=== PATIENT | female | born 1955 | race Caucasian/White ===

== ENCOUNTER 2018-04-01 09:23 | Day surgery (SDC) | payer BC ==
[~2018-04-01 09:23] MED LIST: Buffered Lidocaine 0.9% SYRIN* 5 ML/SYR SYRINGE INTRADERM ONE; Gentamicin ADULT (*) 200 MG in NS 0.9% 100 ML* 100 ML IVPB ONE
[2018-04-01] MEDS ORDERED: Buffered Lidocaine 0.9% SYRIN* 5 ML/SYR SYRINGE ONE (09:50)
[2018-04-01] MEDS ORDERED: Clindamycin 900 MG/D5W BAG(*) 900 MG/50 ML BAG IVPB ONE (09:50)
[2018-04-01] MEDS ORDERED: Gentamicin ADULT (*) 200 MG in NS 0.9% 100 ML* 100 ML IVPB ONE (10:00)
[2018-04-01 10:22] LABS: ABS Basophils 0 10^3/ul (0-0.2); ABS Eosinophils 0.2 10^3/ul (0-0.6); ABS Lymphocytes 2.1 10^3/ul (1.0-4.8); ABS Monocytes 0.6 10^3/ul (0-0.8); ABS Neutrophils 5.5 10^3/ul (1.5-7.7); ABS Nucleated RBC 0 10^3/ul; Eosinophil % 2.3 % (0-6); Hematocrit 42 % (35-47); Hemoglobin 14.4 g/dl (12.0-16.0); Lymphocyte % 24.6 % (25-47); Mean Corpuscular HGB Conc 34 g/dl (31-36); Mean Corpuscular Hemoglobin 30 pg (27-31); Mean Corpuscular Volume 88 fL (80-97); Nucleated Red Blood Cells % 0.1; Platelet Count 233 10^3/ul (150-450); Red Blood Count 4.81 10^6/ul (4.00-5.40); Red Cell Distribution Width 14 % (10.5-15); White Blood Count 8.5 10^3/ul (3.5-10.8)
[2018-04-01 10:32] LABS: INR 1.02 (0.77-1.02)
[2018-04-01] MEDS ORDERED: Lidocaine 1%* 5 ML VIAL ONE (10:44)
[2018-04-01] MEDS ORDERED: Midazolam* 1 MG/ML 5 ML VIAL (5 MG) ONE (11:21)
[2018-04-01] MEDS ORDERED: fentaNYL* 50 MCG/ML 2 ML VIAL (100 MCG VIAL) ONE (11:21)
[2018-04-01] MEDS ORDERED: Propofol* 10 MG/ML 20 ML BTL IV PUSH ONE ×2 (11:29→11:59)
[2018-04-01] MEDS ORDERED: Naloxone* 0.4 MG/ML 1 ML VIAL IV PRN (11:38)
[2018-04-01] MEDS ORDERED: Acetaminophen TAB* 325 MG PO PRN (11:38)
[2018-04-01] MEDS ORDERED: Ibuprofen TAB* 400 MG ONE (12:20)
[2018-04-01 13:47] VITALS: BP 98/48
--- NOTE | 2018-04-02 13:08 | OP ---
DATE OF OPERATION: 04/01/18 - [facility] DATE OF : 51 SURGEON: Leticia Downey MD ANESTHESIOLOGIST: Dr. Isidro. ANESTHESIA: Sedation with paracervical block. PRE-OP DIAGNOSIS: Postmenopausal bleeding. POST-OP DIAGNOSIS: Postmenopausal bleeding, probable endometrial polyp. OPERATIVE PROCEDURE: Dilation and curettage and hysteroscopic resection of intrauterine mass. FINDINGS: Revealed an approximately 1-1/2 cm endometrial polyp and normal uterine cavity otherwise. ESTIMATED BLOOD LOSS: Minimal. IV FLUIDS: 800 cc. URINE OUTPUT: 150 cc of clear yellow urine. DEFICIT: 135 cc of lactated Ringer's. COMPLICATIONS: None apparent. DISPOSITION: Stable to recovery room. DESCRIPTION OF PROCEDURE: The patient was placed in dorsal lithotomy position. Vagina and perineum were prepped and draped in a sterile standard fashion. The patient was identified with universal protocol for correct procedure, patient, and position. A self-cath was placed for drainage of clear yellow urine. Self-cath was removed. Sterile speculum was inserted. A paracervical block was created with 10 cc of 1% lidocaine. The cervix was dilated with two # 8 Hegar dilator. Hysteroscope was inserted. There was an intrauterine mass noted. At that point, the decision was made to proceed with MyoSure for resection of this endometrial probable polyp. The MyoSure was then inserted. Using a regular resection blade, the endometrial polyp was removed in total. Uterine cavity was noted to have normal appearance. After resection of endometrial polyp, sharp curettage was performed. The hysteroscope was re- inserted and confirmed excellent removal of endometrial mass. Single-tooth tenaculum was removed. Hemostasis was noted from the cervix and the sterile speculum was removed. All sponge, needle, instrument, and blade counts were correct throughout the procedure. The patient tolerated the procedure well and went to recovery room in stable condition. [id number]/[facility] #: [id number] [facility]
== END 2018-04-01 13:57 | disposition home or self-care (01) ==
LOC: OR 09:23
PROVIDERS: ATTEND Obstetrics & Gynecology
DX: N95.0 Postmenopausal bleeding (principal); N85.01 Benign endometrial hyperplasia; J45.909 Unspecified asthma, uncomplicated; I10 Essential (primary) hypertension; K21.9 Gastro-esophageal reflux disease without esophagitis; M19.90 Unspecified osteoarthritis, unspecified site; K58.9 Irritable bowel syndrome, unspecified; K76.0 Fatty (change of) liver, not elsewhere classified; Z87.891 Personal history of nicotine dependence; E66.01 Morbid (severe) obesity due to excess calories; E03.9 Hypothyroidism, unspecified; I48.91 Unspecified atrial fibrillation; Z79.01 Long term (current) use of anticoagulants; I25.10 Atherosclerotic heart disease of native coronary artery without angina pectoris
CPT/HCPCS: 36415; 80053; 84443; 85025; 85610; 85730; 86850; 86900; 86901; 88305; A9270-GY; J1580; J2250; J2704; J3010